=== PATIENT | female | born 1950 | race Caucasian/White ===

== ENCOUNTER → 2018-08-27 | Outpatient (CLI) | payer MEDICARE, OTHER ==
--- NOTE | 2018-08-28 16:25 | MAM ---
EXAM DESCRIPTION: 3D Screening BILATERAL : Digital Mammography. CLINICAL HISTORY: 68 years Female SCREENING no complaints. Family and personal history not Available.. Lifetime risk of developing breast cancer (Tyrer-Cuzick model)(%): Not calculated COMPARISON: Baseline study at this facility. No prior reports available. TECHNIQUE: Bilateral CC and MLO projection full-field images, digital tomosynthesis mammographic technique Bilateral digital 2-D full-field MLO images. CAD not available for tomosynthesis or 2-D images. FINDINGS: The breast parenchymal density pattern is: Scattered areas of fibroglandular density. No skin thickening or nipple retraction. Bilateral solitary microcalcifications. No new focal, stellate mass or density, focal asymmetry , and no suspicious microcalcifications bilaterally. IMPRESSION: Benign exam. BIRAD CATEGORY: 2 BENIGN FINDINGS. RECOMMENDATIONS: FOLLOW UP: Routine digital bilateral mammographic screening, one year interval from August 2018. Written communication explaining the IMPRESSION and follow-up, will be mailed to the patient and referring health care provider. According to the [employer], yearly mammograms are recommended starting at age 40 and continuing as long as a woman is in good health. Any breast change noted on a breast self-exam should be reported promptly to the patient's healthcare provider. Breast MRI is recommended for women with an approximately 20-25% or greater lifetime risk of breast cancer, including women with a strong family history of breast or ovarian cancer and women who have been treated for Hodgkin's disease. A negative mammographic report should not delay tissue diagnosis in patients with significant clinical history or physical findings. Extremely dense breast tissue limits the sensitivity of digital mammography. Electronically signed by: Monty Sommers MD 08/28/2018 4:23 PM [facility]
== END ==
LOC: MAMMO 10:58
PROVIDERS: ATTEND Family Medicine
DX: Z12.31 Encounter for screening mammogram for malignant neoplasm of breast (principal); R53.82 Chronic fatigue, unspecified

== ENCOUNTER 2018-11-06 09:25 | Day surgery (SDC) | payer MEDICARE, OTHER ==
[~2018-11-06 09:25] MED LIST: PROPOFOL 200 MG/20 ML VIAL IV ONE
[2018-11-06] MEDS: LACTATED RINGERS 1,000 ML ONE (10:25)
[2018-11-06 11:55] VITALS: O2SAT 99
[2018-11-06 12:25] VITALS: BP 142/75; TEMP 97.8
--- NOTE | 2018-11-06 13:13 | OP ---
DATE OF PROCEDURE: 11/06/18 PREPROCEDURE DIAGNOSIS: 1. Colorectal cancer screening. POSTPROCEDURE DIAGNOSIS: 1. Colitis. PROCEDURE: 1. Colonoscopy. SURGEON: Fredy Mclaughlin MD COMPLICATIONS: No immediate complications. SEDATION: The patient was sedated via IV propofol by the Anesthesia Department. CONSENT: Prior to the procedure, risks, benefits and alternatives to the therapy were discussed with the patient. The risks included bleeding, infection, perforation and . The patient agreed to the procedure and signed a consent. PREPROCEDURE ANESTHESIA ASSESSMENT: An examination revealed no contraindication to sedation. Airway examination demonstrated a Mallampati class type 2, ASA grade assessment type 2. Throughout the procedure, the patient's blood pressure and additional vital signs were closely monitored. PROCEDURE: The patient was placed in the left lateral decubitus position and a rectal examination was performed. The rectal examination was within normal limits. The Olympus colonoscope was passed in the anus, rectum, traversing the colon to the level of the cecum as identified by the appendiceal orifice. The scope was retracted and the mucosa was visualized. The entirety of the exam was performed under direct visualization. Retroflexion was performed in the rectum. Preparation quality was good. The withdrawal time was greater than 6 minutes. The patient tolerated the procedure well. FINDINGS: 1. Scattered areas of erythema and pale mucosa were found in the colon, predominantly in the distal transverse and splenic flexure. The mucosa at this area appeared significantly more pale and associated large ulceration was found exactly at the splenic flexure. Biopsies were obtained from this area to rule out inflammatory bowel disease as well as ischemic changes. A small, erythematous, patchy area was found at the ileocecal valve. Biopsies with cold forceps were also obtained from this area. 2. The remainder of the examination of the colon was unremarkable. 3. The terminal ileum was entirely normal. This was intubated up to 15 cm from the ileocecal valve. 4. Retroflexion in the rectum was normal. IMPRESSION: 1. Colitis. Differential includes inflammatory bowel disease (Crohn's disease) versus ischemic colitis. Histopathology for correlation is required. RECOMMENDATION: 1. Return the patient home. 2. Resume previous diet. 3. Followup pathology results. 4. Return to my office in 1 to 2 weeks. 5. Return to my office p.r.n. 6. Findings were discussed with the patient and family members. 7. Repeat colonoscopy will be determined depending on results of pathology studies. #[id number] [facility] [place]
== END 2018-11-06 12:10 ==
LOC: AMB 09:25
PROVIDERS: ATTEND Internal Medicine Gastroenterology
DX: Z12.11 Encounter for screening for malignant neoplasm of colon (principal); K52.9 Noninfective gastroenteritis and colitis, unspecified
CPT/HCPCS: 00812; 88305; G0121; J3490; J7120

== ENCOUNTER → 2018-11-16 | Outpatient (CLI) | payer MEDICARE, OTHER | LOC: LAB.O 14:27 | PROVIDERS: ATTEND Internal Medicine Gastroenterology | DX: R19.7 Diarrhea, unspecified (principal); K51.50 Left sided colitis without complications ==